=== PATIENT | female | born 1940 | race Caucasian/White ===

== ENCOUNTER → 2017-07-24 | Outpatient (CLI) | payer MEDICARE ==
[~2017-07-24] MED LIST: ASPI-515 PO; CALCIUM PO; FLUT1DIS3 INH; MULT-658 PO; OMEG1CAP24 PO; OMEP-110 PO; SIMV20TA3 PO; VITAMIN B12 PO
== END | disposition home or self-care (01) ==
LOC: RAD 11:48
DX: M79.604 Pain in right leg (principal); R60.0 Localized edema